=== PATIENT | female | born 1960 | race Caucasian/White ===

== ENCOUNTER 2022-07-22 13:48 | Outpatient (CLI) | payer BC, SELFPAY ==
[2022-07-24 21:35] LABS: Antithrombin III Activity 124 % normal (80-135)
[2022-07-27 21:17] LABS: Lupus dRVVT Screen 36 sec (<=45); PTT-LA Screen 35 sec (<=40)
[2022-07-27 22:46] LABS: Homocysteine 8.5 umol/L (<10.4)
[2022-08-01 16:52] LABS: Factor V (Leiden) Mutation NEGATIVE
== END 2022-07-22 13:49 | disposition home or self-care (01) ==
PROVIDERS: Visit Provider Internal Medicine Hematology & Oncology
DX: D68.69 Other thrombophilia (principal)
CPT/HCPCS: 36415; 81240; 81241; 83090; 85300; 85303; 85306; 85613; 85730; 86146